=== PATIENT | male | born 1975 | race Caucasian/White ===

== ENCOUNTER 2019-10-31 18:48 | Emergency (ER) | payer OTHER ==
[2019-10-31] MEDS ORDERED: Lidocaine 1% 10 ML MDV INJECT ONE (19:28)
[2019-10-31] MEDS ORDERED: Diphtheria,Pertussis(Acell),Tetanus Vaccine 0.5 ML Syringe IM ONE (19:28)
--- NOTE | 2019-10-31 19:38 | EDM.PDOC ---
ED HPI GENERAL MEDICAL PROBLEM - General Chief Complaint: Upper Extremity Injury/Pain Stated Complaint: LEFT HAND INJURY Time Seen by Provider: 10/31/19 19:26 Source of Information: Reports: Patient, RN Notes Reviewed History Limitations: Reports: No Limitations - History of Present Illness INITIAL COMMENTS - FREE TEXT/NARRATIVE: Patient is a 43-year-old male who presents to the ED for evaluation of a left hand laceration. Patient states that prior to arrival to the ER, he was laying enriqueta at his house, and accidentally cut himself with his hankins knife. This resulted in 1-1/2 cm laceration to the posterior portion of the thumb webbing, does appear deep, linear in fashion, and is not actively bleeding at time of triage. Patient is neurovascularly intact, and can move his thumb in all range of motion. He is unsure of his last tetanus booster, and he denied any influenza vaccine at today's visit. He states he does not have any med allergies that he is aware of. Left Hand Pain Score (Numeric/FACES): 6 Past Medical History - Past Health History Medical/Surgical History: Denies Medical/Surgical History Social & Family History - Tobacco Use Smoking Status *Q: Current Every Day Smoker Years of Tobacco use: 20 Packs/Tins Daily: 1 - Recreational Drug Use Recreational Drug Use: No Review of Systems - Review of Systems Review Of Systems: Comprehensive ROS is negative, except as noted in HPI. Skin: Reports: Wound (1.5cm linear wound to 1st digit posterior webbing space) Neurological: Denies: Numbness, Tingling ED EXAM, GENERAL - Physical Exam Exam: See Below Exam Limited By: No Limitations General Appearance: Alert, WD/WN, No Apparent Distress Respiratory/Chest: No Respiratory Distress, Lungs Clear, Normal Breath Sounds, No Accessory Muscle Use, Chest Non-Tender Cardiovascular: Normal Peripheral Pulses, Regular Rate, Rhythm, No Murmur Peripheral Pulses: 3+: Radial (L), Radial (R) Extremities: Normal Inspection (with exception of laceration as noted in Skin exam), Normal Range of Motion, Normal Capillary Refill Neurological: Alert, Oriented, Normal Cognition, No Motor/Sensory Deficits Psychiatric: Normal Affect, Normal Mood Skin Exam: Warm, Dry, Normal Color, No Rash, Wound/Incision (1.5 cm linear laceration to the posterior webbing space of the first digit. Patient is able to move his thumb in all range of motion, and is not having any numbness or tingling distal to the injury.) ED TRAUMA EXTREMITY PROCEDURES - Laceration/Wound Repair Left Posterior Proximal Digit - 1st (Thumb) Lac/Wound Length In cm: 1.5 Appearance: Superficial, Linear, Clean Distal NVT: Neuro & Vascular Intact, No Tendon Injury Anesthetic Type: Local Local Anesthetic Volume: 3cc Skin Prep: Chlorhexidine (Hibiciens), Saline Exploration/Debridement/Repair: Wound Explored, In a Bloodless Field, Explored to Base, No Foreign Material Found Closed With: Sutures Suture Size: 4-0 # of Sutures: 4 Sterile Dressing Applied: Nurse Tetanus Status Addressed: Yes Complications: No Course - Vital Signs Last Recorded V/S: Last Vital Signs Temp 97.8 F 10/31/19 18:59 Pulse 86 10/31/19 18:59 Resp 15 10/31/19 18:59 BP 131/80 10/31/19 18:59 Pulse Ox 98 10/31/19 18:59 - Orders/Labs/Meds Orders: Active Orders 24 hr Category Date Time Status Vaccines to be Administered [RC] PER UNIT ROUTINE Care 10/31/19 19:28 Ordered Meds: Medications Discontinued Medications Generic Name Dose Route Start Last Admin Trade Name Freq PRN Reason Stop Dose Admin Diphtheria/Tetanus/Acell Pertussis 0.5 ml 10/31/19 19:28 10/31/19 19:48 Adacel IM 10/31/19 19:29 0.5 ml .ONCE ONE Administration Lidocaine HCl 10 ml 10/31/19 19:28 10/31/19 19:48 Xylocaine 1% INJECT 10/31/19 19:29 10 ml ONETIME ONE Administration Departure - Departure Time of Disposition: 19:37 Disposition: Home, Self-Care 01 Condition: Fair Clinical Impression: Laceration of thumb Qualifiers: Encounter type: initial encounter Damage to nail status: without damage Foreign body presence: without foreign body Laterality: left Qualified Code(s): S61.012A - Laceration without foreign body of left thumb without damage to nail , initial encounter - Discharge Information *PRESCRIPTION DRUG MONITORING PROGRAM REVIEWED*: No *COPY OF PRESCRIPTION DRUG MONITORING REPORT IN PATIENT PAMELA: No Instructions: Sutured Wound Care, [id number] Referrals: Michael Hardy Jr, MD [Primary Care Provider] - Forms: ED Department Discharge Additional Instructions: You have been evaluated in the ED for your laceration. Sutures will need to stay in for 10-14 days (11/10/2019-11/12/2019) You may return to the ED or clinic for removal. Please keep this area clean and dry, you may cleanse with regular soap and water. No vigorous scrubbing. Watch out for signs of infection like increased redness, swelling, pain at the laceration site, or if you should develop any fevers or chills. Please return to ED if your symptoms change or worsen. Sepsis Event Note - Evaluation Sepsis Screening Result: No Definite Risk - Focused Exam Vital Signs: Vital Signs Temp Pulse Resp BP Pulse Ox 10/31/19 18:59 97.8 F 86 15 131/80 98 Date Exam was Performed: 10/31/19 Time Exam was Performed: 20:12 - My Orders Last 24 Hours: My Active Orders 10/31/19 19:28 Vaccines to be Administered [RC] PER UNIT ROUTINE - Assessment/Plan Last 24 Hours: My Active Orders 10/31/19 19:28 Vaccines to be Administered [RC] PER UNIT ROUTINE
== END 2019-10-31 20:24 | disposition home or self-care (01) ==
LOC: JD.ED 18:48
DX: S61.012A Laceration without foreign body of left thumb without damage to nail, initial encounter (principal); Z23 Encounter for immunization; F17.210 Nicotine dependence, cigarettes, uncomplicated; W26.0XXA Contact with knife, initial encounter
CPT/HCPCS: 12001; 90471; 90715; 99282; J2001